=== PATIENT | male | born 1940 | race Caucasian/White ===

== ENCOUNTER 2016-10-29 17:28 | Emergency (ER) | payer OTHER ==
[~2016-10-29] VITALS: Ht 185.4 cm; Wt 56.7 kg
[~2016-10-29 17:28] MED LIST: ATOR40TA52 PO; LISI10TA6 PO; PANT1INJ3 PO; PRE5T PO
[2016-10-29 19:27] LABS: Basophils # (auto) 0 uL; Basophils % (auto) 0.4 % (0.0-2.0); Eosinophils # (auto) 0.3 uL; Eosinophils % (auto) 2.8 % (0.0-7.0); Hematocrit 33.3 % (41.0-53.0); Hemoglobin 10.8 g/dL (13.5-17.5); Lymphocytes # (auto) 0.3 uL; Lymphocytes % (auto) 3.5 % (10.0-50.0); Mean Corpuscular Hemoglobin 27.2 pg (28.0-32.0); Mean Corpuscular Hgb Conc. 32.5 g/dL (32.0-36.0); Mean Corpuscular Volume 83.7 fL (80.0-100.0); Mean Platelet Volume 6.9 fL (7.4-10.4); Monocytes # (auto) 0.7 uL; Neutrophils # (auto) 8.4 uL; Neutrophils % (auto) 86.3 % (37.0-80.0); Platelet Count (auto) 497 10^3/uL (140-450); Red Cell Distribution Width 16.9 % (11.6-16.0); White Blood Cell 9.7 10^3/uL (4.4-10.8)
[2016-10-29] MEDS: ONDANSETRON HCL 4 MG/2 ML VIAL IV ONE (19:29)
[2016-10-29] MEDS: HYDROmorphone HCL 2 MG/ML VL IV ONE (19:29)
[2016-10-29 19:45] LABS: Partial Thromboplastin Time 55.2 sec (22.64-33.71)
[2016-10-29 19:50] LABS: INR 3.08 (0.9-1.15); Prothrombin Time 33.3 sec (9.37-12.3)
[2016-10-29 20:17] LABS: Albumin 2.2 g/dL (3.4-5.0); Alkaline Phosphatase 119 U/L (45-117); Anion Gap 9 (5-15); Aspartate Aminotransferase 14 U/L (15-37); BUN/Creatinine Ratio 32.1; Bilirubin, Total 0.3 mg/dL (0.2-1.0); Blood Urea Nitrogen 18 mg/dL (7-18); Calcium 8.6 mg/dL (8.5-10.1); Carbon Dioxide 25 mmol/L (21-32); Chloride 105 mmol/L (98-107); GFR African American 181 mL/min; GFR Non-African American 150 mL/min; Glucose 132 mg/dL (74-106); Sodium 139 mmol/L (136-145); Total Protein 6.9 g/dL (6.4-8.2)
[2016-10-30] MEDS: CEFTRIAXONE SODIUM 2 GM in D5W 5% 50 ML IV ONE (06:20)
[2016-10-30 08:00] VITALS: BP 98/55
[2016-10-30 12:16] LABS: Urine Color Yellow (Yellow)
[2016-10-30 12:17] LABS: Urine Bilirubin Negative (Negative); Urine Blood Negative /uL (Negative); Urine Glucose Normal (Normal); Urine Ketone Negative (Negative); Urine Nitrite Negative (Negative); Urine Urobilinogen Normal (Negative)
[2016-10-30 12:18] LABS: Urine Amorphous Sediment Few /hpf; Urine RBC 2 /hpf (0 - 3); Urine Squamous Epithelial Cell FEW /hpf (<5); Urine Triple Phosphate Crystal Few /hpf (None Seen)
== END 2016-10-30 08:49 | disposition home or self-care (01) ==
LOC: EDBD 17:28 → EDUNIT# 17:28 → ER 17:28
DX: N39.0 Urinary tract infection, site not specified (principal); I48.91 Unspecified atrial fibrillation; J44.9 Chronic obstructive pulmonary disease, unspecified; I10 Essential (primary) hypertension; Z79.01 Long term (current) use of anticoagulants; Z88.8 Allergy status to other drugs, medicaments and biological substances
CPT/HCPCS: 36415; 80053; 81001; 83735; 84484; 85025; 85610; 85730; 87040; 87086; 87088; 87186; 93005; 94761; 96374; 96375; 99285; J0696; J1170; J2405; J7060

== ENCOUNTER 2016-11-20 11:43 | Inpatient (IN) | payer OTHER ==
[~2016-11-20] VITALS: Ht 177.8 cm; Wt 49.3 kg
[2016-11-20] VITALS (36 sets, daily range): BP systolic 75–118; BP diastolic 35–77
[2016-11-20] MEDS ORDERED: ALBUTEROL SULF 2.5 MG/0.5ML(0.5%) NEB SOLN NEB STA (11:57)
[2016-11-20] MEDS ORDERED: cefTRIAXone 1GM/50ML D5W 50 ML IV ONE (12:00)
[2016-11-20] MEDS ORDERED: IPRATROPIUM BROM 0.5 MG/2.5ML INH SOL NEB ONE (12:00)
[2016-11-20] MEDS ORDERED: methylPREDNISolone SOD SUCC 125 MG/2 ML VL IV ONE (12:00)
[2016-11-20 12:19] LABS: DEFINITIVE VIEW TRANSMISSION; Hematocrit 34.8 % (41.0-53.0); Hemoglobin 11.2 g/dL (13.5-17.5); Mean Corpuscular Hemoglobin 26.6 pg (28.0-32.0); Mean Corpuscular Hgb Conc. 32.2 g/dL (32.0-36.0); Mean Corpuscular Volume 82.5 fL (80.0-100.0); Mean Platelet Volume 6.3 fL (7.4-10.4); Red Cell Distribution Width 18.9 % (11.6-16.0); SUSPECT VIEW TRANSMISSION
[2016-11-20 12:27] LABS: Platelet Count (auto) 849 10^3/uL (140-450); White Blood Cell 31.9 10^3/uL (4.4-10.8)
[2016-11-20 12:28] LABS: Metamyelocytes % 0; Myelocytes % 0; Promyelocytes % 0; Reactive Lymphocytes 0
[2016-11-20] MEDS ORDERED: AZITHROMYCIN 500MG/D5W 250ML 250 ML IV ONE (12:45)
[2016-11-20 12:48] LABS: Lactic Acid w/Reflex 4.4 mmol/L (0.4-2.0); REFLEX LACTIC ACID YES OR NO YES
[2016-11-20 12:50] LABS: Alkaline Phosphatase 132 U/L (45-117); Anion Gap 15 (5-15); Aspartate Aminotransferase 15 U/L (15-37); BUN/Creatinine Ratio 18.5; Bilirubin, Total 0.6 mg/dL (0.2-1.0); Blood Urea Nitrogen 20 mg/dL (7-18); Calcium 8.7 mg/dL (8.5-10.1); Carbon Dioxide 20 mmol/L (21-32); Chloride 101 mmol/L (98-107); GFR African American 85 mL/min; GFR Non-African American 70 mL/min; Glucose 161 mg/dL (74-106); Magnesium 2.1 mg/dL (1.6-2.6); Potassium 4.3 mmol/L (3.5-5.1); Sodium 136 mmol/L (136-145); Total Protein 7.6 g/dL (6.4-8.2)
[2016-11-20 13:01] LABS: B-Type Natriuretic Peptide 209.24 pg/mL (0-100); Temperature: 23.1 C (20.0-25.0)
[2016-11-20] MEDS ORDERED: LORazepam 0.5 MG TAB PO PRN (13:15)
[2016-11-20] MEDS ORDERED: DEXTROSE (50%) 50ML SYRG IV PRN (13:15)
[2016-11-20] MEDS ORDERED: PROCHLORPERAZINE EDISYLATE 5 MG/ML 2ML VIAL IV PRN (13:15)
[2016-11-20] MEDS ORDERED: ALBUTEROL SULF 2.5 MG/0.5ML(0.5%) NEB SOLN NEB PRN (13:15)
[2016-11-20] MEDS ORDERED: LACTULOSE 20Gm/30ML SOLN PO PRN (13:15)
[2016-11-20] MEDS ORDERED: SODIUM CHLORIDE 0.9% 1,000 ML IV ONE (13:15)
[2016-11-20] MEDS ORDERED: VANCOMYCIN PER PHARMACY 0 MG IV SCH (13:15)
[2016-11-20] MEDS ORDERED: TEMAZEPAM 15 MG CAP PO PRN (13:15)
[2016-11-20] MEDS ORDERED: MORPHINE SULF INJ 2 MG/ML SYRINGE 1ML IV PRN ×2 (13:15)
[2016-11-20] MEDS ORDERED: NITROGLYCERIN 0.4 MG SL TAB SL PRN (13:15)
[2016-11-20 13:22] LABS: Allen Test Yes; Base Excess -1.5 mmol/L (-2.0-2.0); Blood AaDO2 131.4 mmHg (<26.0); Blood COHb 0.6 % (0.5-1.5); Blood O2Hb 92.4 % (95.0-100.0); HCO3 20.4 mmol/L (22-26.0); MODE NASAL CANNULA; PCO2 26.1 mmHg (35.0-45.0); PO2 66.2 mmHg (65.0-85.0); Sample Type Arterial
[2016-11-20] MEDS: SODIUM CHLORIDE 0.9% 1,000 ML IV SCH ×2 (13:42→17:13)
[2016-11-20] MEDS ORDERED: PIPERACILLIN-TAZOB 3.375GM 100 ML IV ONE (13:45)
[2016-11-20 14:49] LABS: Hypochromia Slight; Platelet Estimate Markedly Increased
[2016-11-20] MEDS ORDERED: VANCOMYCIN 1GM/250ML D5W 250 ML IV ONE (15:00)
[2016-11-20 15:59] LABS: Prothrombin Time 68.8 sec (9.37-12.3)
[2016-11-20 16:02] LABS: INR 6.37 (0.9-1.15)
[2016-11-20] MEDS ORDERED: SODIUM CHLORIDE 0.9% 500 ML IV ONE (16:30)
[2016-11-20] MEDS ORDERED: PHYTONADIONE ORAL Susp 10 mg/10ml PO ONE (16:30)
[2016-11-20] MEDS: ACCU-CHEK COMFORT CURVE STRIP VI SCH ×2 (17:13→21:54)
[2016-11-20] MEDS: PIPERACILLIN-TAZOB 3.375GM 100 ML IV SCH (17:14)
[2016-11-20] MEDS: ALBUTEROL SULF 2.5 MG/0.5ML(0.5%) NEB SOLN NEB SCH (17:56)
[2016-11-20] MEDS ORDERED: PNEUMOCOCCAL VACC POLYS 25 MCG/0.5 ML VIAL IM ONE (19:15)
[2016-11-20] MEDS ORDERED: POTA10TA79 PO (19:33)
[2016-11-20] MEDS ORDERED: FURO20TA3 PO (19:33)
[2016-11-20] MEDS ORDERED: TIOTCAP INH (19:33)
[2016-11-20] MEDS ORDERED: DIGO0.2570 PO (19:33)
[2016-11-20] MEDS ORDERED: MOME200A INH (19:33)
[2016-11-20] MEDS ORDERED: LACT10SO32 PO (19:33)
[2016-11-20] MEDS ORDERED: ALBU0.084 NEB (19:33)
[2016-11-20] MEDS ORDERED: FINA5TAB4 PO (19:33)
[2016-11-20] MEDS ORDERED: WARF1TAB36 PO (19:33)
[2016-11-20] MEDS: CARVEDILOL 3.125 MG TAB PO SCH (21:54)
[2016-11-21] VITALS (91 sets, daily range): BP systolic 80–147; BP diastolic 38–105
[2016-11-21] MEDS: ALBUTEROL SULF 2.5 MG/0.5ML(0.5%) NEB SOLN NEB SCH ×4 (01:00→18:50)
[2016-11-21] MEDS: ACETAMINOPHEN 500 MG TAB PO PRN ×2 (01:22→22:37)
[2016-11-21] MEDS: SODIUM CHLORIDE 0.9% 1,000 ML IV SCH ×3 (03:00→21:14)
[2016-11-21 03:53] LABS: DEFINITIVE VIEW TRANSMISSION; Hematocrit 26.1 % (41.0-53.0); Hemoglobin 8.4 g/dL (13.5-17.5); Mean Corpuscular Hemoglobin 26.7 pg (28.0-32.0); Mean Corpuscular Volume 83.4 fL (80.0-100.0); Mean Platelet Volume 6.3 fL (7.4-10.4); Platelet Count (auto) 504 10^3/uL (140-450); Red Cell Distribution Width 18.7 % (11.6-16.0); SUSPECT VIEW TRANSMISSION
[2016-11-21 04:03] LABS: Albumin 1.8 g/dL (3.4-5.0); BUN/Creatinine Ratio 26.6; Calcium 7.6 mg/dL (8.5-10.1); Potassium 3.4 mmol/L (3.5-5.1)
[2016-11-21 04:06] LABS: Bilirubin, Total 0.4 mg/dL (0.2-1.0)
[2016-11-21 04:12] LABS: Metamyelocytes % 0; Myelocytes % 0; Promyelocytes % 0; Reactive Lymphocytes 0
[2016-11-21 04:56] LABS: Hypersegmented Neutrophils Present
[2016-11-21 04:57] LABS: Anisocytosis Slight; Burr Cells FEW; Hypochromia Slight; Platelet Estimate Increased
[2016-11-21] MEDS: PIPERACILLIN-TAZOB 3.375GM 100 ML IV SCH ×4 (05:48→18:16)
[2016-11-21] MEDS ORDERED: ALBUMIN 5% 250 ML IV ONE ×3 (06:15→07:15)
[2016-11-21] MEDS ORDERED: POTASSIUM CHLORIDE 20 MEQ, LIDOCAINE 1% (LOCAL ANESTH.) 2 ML in SODIUM CHL 0.9% 100 ML IV ONE (06:15)
[2016-11-21] MEDS: ACCU-CHEK COMFORT CURVE STRIP VI SCH ×2 (06:32→11:31)
[2016-11-21] MEDS ORDERED: AZITHROMYCIN 500MG/D5W 250ML 250 ML IV SCH (10:00)
[2016-11-21] MEDS: CARVEDILOL 3.125 MG TAB PO SCH ×2 (10:00→21:52)
[2016-11-21] MEDS: HYDROcodone-ACET 5/325MG TAB PO PRN ×2 (10:16→17:15)
[2016-11-21] MEDS ORDERED: VANCOMYCIN 750 MG in D5W 5% 250 ML IV SCH (15:00)
[2016-11-21] MEDS ORDERED: POTASSIUM CHL 20 Meq TABLET PO ONE (15:00)
[2016-11-21] MEDS ORDERED: PANTOPRAZOLE 40 MG TAB PO ONE (15:15)
[2016-11-21 16:08] LABS: INR 1.88 (0.9-1.15); Prothrombin Time 20.3 sec (9.37-12.3)
[2016-11-21] MEDS ORDERED: IPRATROPIUM BROM 0.5 MG/2.5ML INH SOL NEB PRN (21:30)
[2016-11-21] MEDS ORDERED: FUROSEMIDE 20 MG/2 ML VIAL IV ONE (21:30)
[2016-11-21] MEDS ORDERED: methylPREDNISolone SOD SUCC 40 MG/ML VL IV SCH (22:00)
[2016-11-22] MEDS ORDERED: PANTOPRAZOLE 40 MG TAB PO SCH (10:00)
== END 2016-11-21 23:30 | disposition short-term general hospital (02) | DRG 871 ==
LOC: EDUNIT# 11:43 → ER 11:48 → TELE 11:49 → ICU WEST 15:27
PROVIDERS: ADMIT Internal Medicine; ATTEND Internal Medicine
PROC: 30233K1 Transfusion of Nonautologous Frozen Plasma into Peripheral Vein, Percutaneous Approach (ICD-10-PCS; principal; 2016-11-20)
PROC: 30233P1 Transfusion of Nonautologous Frozen Red Cells into Peripheral Vein, Percutaneous Approach (ICD-10-PCS; 2016-11-20)
DX: A41.9 Sepsis, unspecified organism (principal); J96.01 Acute respiratory failure with hypoxia; E43 Unspecified severe protein-calorie malnutrition; J18.9 Pneumonia, unspecified organism; I50.42 Chronic combined systolic (congestive) and diastolic (congestive) heart failure; J44.1 Chronic obstructive pulmonary disease with (acute) exacerbation; N39.0 Urinary tract infection, site not specified; Z68.1 Body mass index [BMI] 19.9 or less, adult; J44.0 Chronic obstructive pulmonary disease with (acute) lower respiratory infection; I48.91 Unspecified atrial fibrillation; Z66 Do not resuscitate; E87.6 Hypokalemia; F41.9 Anxiety disorder, unspecified; I11.0 Hypertensive heart disease with heart failure; I25.9 Chronic ischemic heart disease, unspecified; N40.0 Benign prostatic hyperplasia without lower urinary tract symptoms; Z86.73 Personal history of transient ischemic attack (TIA), and cerebral infarction without residual deficits; D50.9 Iron deficiency anemia, unspecified; D53.9 Nutritional anemia, unspecified; Z23 Encounter for immunization; T45.515A Adverse effect of anticoagulants, initial encounter
CPT/HCPCS: 36415; 36600; 71010; 76604; 80053; 80162; 82805; 82962; 83036; 83605; 83735; 83880; 84443; 84484; 85007; 85027; 85610; 86850; 86900; 86901; 87040; 87070; 87081; 87205; 93005; 94640; 96365; 96366; 96367; 96368; 96375; 99291; J0696; J2001; J2543; J7060

== ENCOUNTER 2016-12-17 09:00 | Observation (INO) | payer OTHER ==
[~2016-12-17] VITALS: Ht 182.9 cm; Wt 59.0 kg
[~2016-12-17 09:00] MED LIST changes: +ALBU0.084 NEB; +DIGO0.2570 PO; +FINA5TAB4 PO; +FURO20TA3 PO; +LACT10SO32 PO; +MOME200A INH; +POTA10TA79 PO; +TIOTCAP INH; +WARF1TAB36 PO
[2016-12-17 09:53] LABS: Basophils # (auto) 0 uL; DEFINITIVE VIEW TRANSMISSION; Eosinophils # (auto) 0.1 uL; Eosinophils % (auto) 1.2 % (0.0-7.0); Hematocrit 29.6 % (41.0-53.0); Hemoglobin 9.5 g/dL (13.5-17.5); Lymphocytes # (auto) 0.3 uL; Lymphocytes % (auto) 3.8 % (10.0-50.0); Mean Corpuscular Hemoglobin 25.9 pg (28.0-32.0); Mean Corpuscular Hgb Conc. 32.1 g/dL (32.0-36.0); Mean Corpuscular Volume 80.7 fL (80.0-100.0); Mean Platelet Volume 6.5 fL (7.4-10.4); Monocytes # (auto) 0.6 uL; Monocytes % (auto) 6.8 % (0.0-12.0); Neutrophils # (auto) 7.7 uL; Neutrophils % (auto) 88.2 % (37.0-80.0); Platelet Count (auto) 653 10^3/uL (140-450); White Blood Cell 8.7 10^3/uL (4.4-10.8)
[2016-12-17 09:55] LABS: Red Cell Distribution Width 20.9 % (11.6-16.0)
[2016-12-17] MEDS ORDERED: SODIUM CHLORIDE 0.9% 1,000 ML IV ONE (10:08)
[2016-12-17] MEDS ORDERED: MORPHINE SULFATE 4 MG/ML SYRG IV ONE (10:15)
[2016-12-17] MEDS ORDERED: ONDANSETRON HCL 4 MG/2 ML VIAL IV ONE (10:15)
[2016-12-17 10:16] LABS: Albumin 2.2 g/dL (3.4-5.0); BUN/Creatinine Ratio 30.9; Bilirubin, Total 0.5 mg/dL (0.2-1.0); Calcium 8.8 mg/dL (8.5-10.1); Magnesium 2.4 mg/dL (1.6-2.6); Potassium 3.9 mmol/L (3.5-5.1); Total Protein 7.6 g/dL (6.4-8.2)
[2016-12-17 10:23] LABS: Anisocytosis Slight; Hypochromia Slight; Platelet Estimate Increased
[2016-12-17 10:42] LABS: INR 2.98 (0.9-1.15); Prothrombin Time 32.8 sec (9.37-12.3)
[2016-12-17 10:57] LABS: B-Type Natriuretic Peptide 150.07 pg/mL (0-100); Temperature: 24.6 C (20.0-25.0)
[2016-12-17 12:54] LABS: Urine Bilirubin Negative (Negative); Urine Color Yellow (Yellow); Urine Glucose Normal (Normal); Urine Ketone Negative (Negative); Urine Mucus FEW (None Seen); Urine Nitrite Negative (Negative); Urine RBC 51 /hpf (0 - 3); Urine Squamous Epithelial Cell FEW /hpf (<5)
[2016-12-17 12:57] LABS: Urine Blood 1+ /uL (Negative)
[2016-12-17] MEDS ORDERED: MINERAL OIL 30 ML PO ONE (15:00)
[2016-12-17] MEDS ORDERED: CIPROFLOXACIN HCL 500 MG TAB PO ONE (15:00)
[2016-12-17 18:47] VITALS: BP 128/89
== END 2016-12-17 21:05 | disposition short-term general hospital (02) | DRG 641 ==
LOC: EDBD 09:00 → ER 09:04 → OVERFLOW 12:48 → ER 21:05
PROVIDERS: ADMIT Emergency Medicine; ATTEND Emergency Medicine
DX: E43 Unspecified severe protein-calorie malnutrition (principal); R10.9 Unspecified abdominal pain; I11.0 Hypertensive heart disease with heart failure; I48.91 Unspecified atrial fibrillation; I50.9 Heart failure, unspecified; J44.9 Chronic obstructive pulmonary disease, unspecified; K21.9 Gastro-esophageal reflux disease without esophagitis; Z86.73 Personal history of transient ischemic attack (TIA), and cerebral infarction without residual deficits
CPT/HCPCS: 36415; 71010; 74176; 80053; 81001; 83605; 83735; 83880; 84484; 85025; 85610; 85730; 87040; 93005; 96361; 96374; 96375; 99285; G0378; J2270; J2405

== ENCOUNTER 2018-01-15 07:31 | Emergency (ER) | payer OTHER ==
[~2018-01-15] VITALS: Ht 185.4 cm; Wt 74.8 kg
[~2018-01-15 07:31] MED LIST changes: -MOME200A INH; -PANT1INJ3 PO; -PRE5T PO
[2018-01-15 07:59] LABS: Basophils # (auto) 0 uL; Hemoglobin 10.3 g/dL (13.5-17.5); Lymphocytes # (auto) 0.5 uL
[2018-01-15 08:02] LABS: Basophils % (auto) 0.3 % (0.0-2.0); Eosinophils # (auto) 0.2 uL; Eosinophils % (auto) 1.4 % (0.0-7.0); Hematocrit 33.1 % (41.0-53.0); Lymphocytes % (auto) 4.4 % (10.0-50.0); Mean Corpuscular Hemoglobin 26.5 pg (28.0-32.0); Mean Corpuscular Hgb Conc. 31.2 g/dL (32.0-36.0); Monocytes # (auto) 0.9 uL; Monocytes % (auto) 7.8 % (0.0-12.0); Neutrophils # (auto) 9.9 uL; Neutrophils % (auto) 86.1 % (37.0-80.0); Platelet Count (auto) 353 10^3/uL (140-450); Red Cell Distribution Width 18.8 % (11.8-14.3); White Blood Cell 11.5 10^3/uL (4.4-10.8)
[2018-01-15 08:21] LABS: Albumin 2.6 g/dL (3.4-5.0); BUN/Creatinine Ratio 50.8; Bilirubin, Total 0.4 mg/dL (0.2-1.0); Calcium 8.3 mg/dL (8.5-10.1); Total Protein 6.8 g/dL (6.4-8.2)
[2018-01-15] MEDS ORDERED: SODIUM CHLORIDE 0.9% 1,000 ML IV ONE (09:30)
[2018-01-15] MEDS ORDERED: FLEET ENEMA(ADULT) 135 ML PR ONE (10:30)
[2018-01-15] MEDS ORDERED: PANTOPRAZOLE 40 MG/10 ML VIAL IV ONE (15:30)
[2018-01-15 21:26] VITALS: BP 94/57
== END 2018-01-15 22:29 | disposition short-term general hospital (02) ==
LOC: EDBD 07:31 → ER 07:35
DX: K92.2 Gastrointestinal hemorrhage, unspecified (principal); E44.0 Moderate protein-calorie malnutrition; I48.91 Unspecified atrial fibrillation; K21.9 Gastro-esophageal reflux disease without esophagitis; J44.9 Chronic obstructive pulmonary disease, unspecified; Z68.21 Body mass index [BMI] 21.0-21.9, adult; Z86.73 Personal history of transient ischemic attack (TIA), and cerebral infarction without residual deficits; Z88.1 Allergy status to other antibiotic agents; Z88.6 Allergy status to analgesic agent
CPT/HCPCS: 36415; 74176; 80053; 85025; 93005; 96374; 99285; C9113; J7030

== ENCOUNTER 2018-01-25 08:08 | Emergency (ER) | payer OTHER ==
[~2018-01-25] VITALS: Ht 182.9 cm; Wt 58.5 kg
[2018-01-25] MEDS ORDERED: SODIUM CHLORIDE 0.9% 1,000 ML IV ONE (08:27)
[2018-01-25] MEDS ORDERED: LIDOCAINE 2% JELLY 11ml (GLYDO) ONE (08:31)
[2018-01-25] MEDS ORDERED: LIDOCAINE 2% JELLY 11ml (GLYDO) UR ONE ×2 (08:45→11:30)
[2018-01-25 09:13] LABS: Basophils # (auto) 0 uL; Basophils % (auto) 0.2 % (0.0-2.0); Eosinophils # (auto) 0.3 uL; Eosinophils % (auto) 2.6 % (0.0-7.0); Hematocrit 28.7 % (41.0-53.0); Hemoglobin 9.2 g/dL (13.5-17.5); Lymphocytes # (auto) 0.4 uL; Mean Corpuscular Hemoglobin 27.3 pg (28.0-32.0); Mean Corpuscular Hgb Conc. 32.2 g/dL (32.0-36.0); Mean Corpuscular Volume 84.6 fL (80.0-100.0); Monocytes # (auto) 0.8 uL; Monocytes % (auto) 8.5 % (0.0-12.0); Neutrophils # (auto) 8.1 uL; Neutrophils % (auto) 84.7 % (37.0-80.0); Nucleated Red Blood Cells % 0.1 %; Platelet Count (auto) 387 10^3/uL (140-450); Red Blood Cells 3.39 10^6/uL (4.5-5.90); Red Cell Distribution Width 19.5 % (11.8-14.3); White Blood Cell 9.6 10^3/uL (4.4-10.8)
[2018-01-25 09:28] LABS: Albumin 2.5 g/dL (3.4-5.0); BUN/Creatinine Ratio 11.3; Calcium 8.3 mg/dL (8.5-10.1); INR 1.07 (0.9-1.15); Partial Thromboplastin Time 27.3 sec (23.78-33.04); Potassium 3.7 mmol/L (3.5-5.1); Prothrombin Time 11.4 sec (9.27-12.13)
[2018-01-25 09:31] LABS: Bilirubin, Total 0.4 mg/dL (0.2-1.0); Total Protein 6.3 g/dL (6.4-8.2)
[2018-01-25] MEDS ORDERED: METOCLOPRAMIDE HCL 5MG/ml INJ 2ml VIAL IV ONE (10:45)
[2018-01-25] MEDS ORDERED: KETOROLAC TROMETH 30 MG/ML 1ML VIAL IV ONE (10:45)
[2018-01-25] MEDS ORDERED: TAMSULOSIN HYDROCHLORIDE 0.4 MG CAP PO ONE (10:45)
[2018-01-25] MEDS ORDERED: HYDROcodone-ACET 10/325MG TAB PO ONE (11:30)
[2018-01-25] MEDS ORDERED: LORazepam 2MG/ML-1ML VIAL IV ONE (16:15)
[2018-01-25 19:50] VITALS: BP 108/68
== END 2018-01-25 20:15 | disposition home or self-care (01) ==
LOC: EDBD 08:08 → ER 08:08
DX: N39.0 Urinary tract infection, site not specified (principal); I48.91 Unspecified atrial fibrillation; K21.9 Gastro-esophageal reflux disease without esophagitis; E78.5 Hyperlipidemia, unspecified; Z74.01 Bed confinement status; Z86.73 Personal history of transient ischemic attack (TIA), and cerebral infarction without residual deficits
CPT/HCPCS: 36415; 51702; 74176; 80053; 80162; 83690; 83735; 85025; 85610; 85730; 93005; 96374; 96375; 99285; J1885; J2060; J2765

== ENCOUNTER 2018-09-13 14:39 | Inpatient (IN) | payer OTHER ==
[~2018-09-13] VITALS: Ht 182.9 cm; Wt 62.0 kg
[~2018-09-13 14:39] MED LIST changes: +AZIT500T4 PO
[2018-09-13 16:50] LABS: Hemoglobin 8.6 g/dL (13.5-17.5)
[2018-09-13 16:52] LABS: Mean Corpuscular Hemoglobin 24.6 pg (28.0-32.0); Mean Corpuscular Hgb Conc. 31.7 g/dL (32.0-36.0); Mean Corpuscular Volume 77.6 fL (80.0-100.0); Platelet Count (auto) 555 10^3/uL (140-450); Red Blood Cells 3.49 10^6/uL (4.5-5.90); Red Cell Distribution Width 19.8 % (11.8-14.3); White Blood Cell 13.5 10^3/uL (4.4-10.8)
[2018-09-13 16:59] LABS: Basophils % (manual) 0 (0.0-2.0); Blast Cells 0; Metamyelocytes % 0; Myelocytes % 0; Promyelocytes % 0; Reactive Lymphocytes 0
[2018-09-13 17:02] LABS: Albumin 1.7 g/dL (3.4-5.0); Potassium 4.2 mmol/L (3.5-5.1)
[2018-09-13 17:07] LABS: BUN/Creatinine Ratio 43.4; Bilirubin, Total 0.3 mg/dL (0.2-1.0); Total Protein 6.5 g/dL (6.4-8.2)
[2018-09-13 17:33] LABS: Band Neutrophils % (manual) 1; Eosinophils % (manual) 2 (0-7); Lymphocytes % (manual) 1 (10.0-50.0); Monocytes % (manual) 2 (0-12)
[2018-09-13] MEDS ORDERED: SODIUM CHLORIDE 0.9% 1,000 ML IV ONE (17:44)
[2018-09-13] MEDS ORDERED: cefTRIAXone 1GM/50ML D5W 50 ML IV ONE (17:45)
[2018-09-13 18:29] LABS: Prothrombin Time 42.4 sec (9.27-12.13)
[2018-09-13 18:32] LABS: Magnesium 2.2 mg/dL (1.6-2.6)
[2018-09-13 18:51] LABS: INR 4.3 (0.9-1.15)
[2018-09-13] MEDS ORDERED: AZITHROMYCIN 500MG/ 250ML 250 ML IV ONE (22:30)
[2018-09-13] MEDS ORDERED: FUROSEMIDE 40 MG/4 ML VIAL IV ONE (22:30)
[2018-09-13] MEDS ORDERED: LACTULOSE 20Gm/30ML SOLN PO PRN (22:45)
[2018-09-13 23:36] VITALS: BP 116/87
[2018-09-14] MEDS: ALBUTEROL SULF 2.5 MG/0.5ML(0.5%) NEB SOLN NEB SCH ×6 (02:00→22:50)
[2018-09-14] MEDS: IPRATROPIUM BROM 0.5 MG/2.5ML INH SOL NEB SCH ×6 (02:00→22:50)
[2018-09-14] MEDS ORDERED: DIGOXIN (250MCG/ML) 2 ML AMPULE ONE (03:19)
[2018-09-14] MEDS ORDERED: DIGOXIN (250MCG/ML) 2 ML AMPULE IV ONE (03:30)
[2018-09-14] MEDS ORDERED: DILTIAZEM HCL 25 MG/5 ML VIAL IV ONE ×2 (04:09→04:15)
[2018-09-14 04:24] VITALS: BP 92/58
[2018-09-14] MEDS ORDERED: AMIODARONE HCL 150 MG in D5W 5% 100 ML IV ONE (07:00)
[2018-09-14] MEDS ORDERED: AMIODARONE HCL 900 MG in DEXTROSE 500 ML IV SCH (07:09)
[2018-09-14 08:16] LABS: Eosinophils # (auto) 0.1 uL; Eosinophils % (auto) 0.5 % (0.0-7.0); Hemoglobin 7.9 g/dL (13.5-17.5); Nucleated Red Blood Cells % 0.3 %; White Blood Cell 12.3 10^3/uL (4.4-10.8)
[2018-09-14 08:18] LABS: Basophils # (auto) 0.1 uL; Basophils % (auto) 0.5 % (0.0-2.0); Hematocrit 25.2 % (41.0-53.0); Lymphocytes # (auto) 0.2 uL; Lymphocytes % (auto) 1.9 % (10.0-50.0); Mean Corpuscular Hemoglobin 24.6 pg (28.0-32.0); Mean Corpuscular Hgb Conc. 31.5 g/dL (32.0-36.0); Mean Corpuscular Volume 78.2 fL (80.0-100.0); Monocytes # (auto) 0.5 uL; Monocytes % (auto) 4.1 % (0.0-12.0); Neutrophils # (auto) 11.5 uL; Platelet Count (auto) 550 10^3/uL (140-450); Red Blood Cells 3.22 10^6/uL (4.5-5.90)
[2018-09-14 08:20] LABS: Red Cell Distribution Width 20.4 % (11.8-14.3)
[2018-09-14 08:33] LABS: BUN/Creatinine Ratio 37.5; Calcium 7.4 mg/dL (8.5-10.1); Potassium 3.9 mmol/L (3.5-5.1)
[2018-09-14] MEDS: FUROSEMIDE 40 MG/4 ML VIAL IV SCH (10:00)
[2018-09-14] MEDS: LEVOFLOXACIN 500MG 100 ML IV SCH (10:10)
[2018-09-14] MEDS: POTASSIUM CHLORIDE 8 MEQ TAB PO SCH (10:10)
[2018-09-14] MEDS: DIGOXIN 0.125 MG TAB PO SCH (10:10)
[2018-09-14] MEDS: FINASTERIDE 5 MG TAB PO SCH (10:10)
--- NOTE | 2018-09-14 10:16 | NUR ---
ALBUTEROL HELD AT THIS TIME DUE TO TACHYCARDIA. HR 133. ATROVENT ADMINISTERED WITH NO ADVERSE REACTIONS NOTED. FAIZA JACKMAN AWARE. MEDICATION RETURNED TO [facility]
[2018-09-14] MEDS: AMIODARONE HCL 900 MG in DEXTROSE 500 ML IV SCH (13:16)
--- NOTE | 2018-09-14 13:22 | NUR ---
ORDER AND CLINICALS FAXED TO [facility] REQUESTING TRANSFER
--- NOTE | 2018-09-14 15:46 | NUR ---
FOLLOW UP PHONE CALL MADE TO [facility] TO CONFIRM ORDER TO TRANSFER WAS RECEIVED. THEY ARE WORKING ON THE TRANSFER.
[2018-09-14 16:21] LABS: Prothrombin Time 43.9 sec (9.27-12.13)
[2018-09-14 16:57] LABS: INR 4.47 (0.9-1.15)
--- NOTE | 2018-09-14 18:00 | NUR ---
WOUND CARE NOTE: Wound care in to see patient per wound care request regarding Low Reece score of 12, putting patient to high risk for skin breakdown. Patient is 78 years old male with admitting diagnosis of COPD Exacerbation. Patient is resting in R bed #8. He's awake, alert and oriented. No wound noted to visible skin, arms and BLE . Unable to fully assess skin to back and sacral area as patient refused and stated he has no pressure injury, no wounds. Patient states that "it hurts when turn and move" and added that "you may cause more harm than good" Patient educted on risk for pressure injury he states he's aware but still refused. FAIZA Cali made aware of patient's refusal for skin assessment. RECOMMENDATION: BID/PRN cleaning and application of Barrier cream to sacral/buttocks as preventative with application of preventative Opti foam sacral dressing per MD order,Dietary consult for low Reece score, frequent turning and repositioning schedule as condition permits, redistribute pressure points with pillows,elevate heels on pillows, continue monitoring by wound care while patient is hospitalized.
[2018-09-14] MEDS: ACETAMINOPHEN 500 MG TAB PO PRN (19:56)
[2018-09-14] MEDS ORDERED: AZITHROMYCIN 500MG/ 250ML 250 ML IV SCH (22:00)
[2018-09-14] MEDS ORDERED: cefTRIAXone 1GM/50ML D5W 50 ML IV SCH (22:00)
[2018-09-15] MEDS: HYDROcodone-ACET 5/325MG TAB PO PRN ×3 (00:59→23:02)
[2018-09-15] MEDS: IPRATROPIUM BROM 0.5 MG/2.5ML INH SOL NEB SCH ×6 (02:14→22:39)
[2018-09-15] MEDS: ALBUTEROL SULF 2.5 MG/0.5ML(0.5%) NEB SOLN NEB SCH ×5 (02:14→18:46)
[2018-09-15 04:41] LABS: Urine Bacteria MANY /hpf (None Seen); Urine Blood 1+ /uL (Negative); Urine Budding Yeast MANY /hpf (None Seen); Urine Mucus FEW (None Seen); Urine Specific Gravity 1.023 (1.001-1.035); Urine WBC 346 /hpf (0 - 3); Urine WBC Clumps PRESENT /hpf (None Seen)
[2018-09-15 07:29] LABS: Basophils # (auto) 0 uL; Basophils % (auto) 0.1 % (0.0-2.0); Eosinophils # (auto) 0.1 uL; Eosinophils % (auto) 1.4 % (0.0-7.0); Lymphocytes # (auto) 0.2 uL; Monocytes # (auto) 0.6 uL
[2018-09-15 07:32] LABS: Hematocrit 26.4 % (41.0-53.0); Hemoglobin 8.3 g/dL (13.5-17.5); Lymphocytes % (auto) 1.7 % (10.0-50.0); Mean Corpuscular Hemoglobin 25.1 pg (28.0-32.0); Mean Corpuscular Hgb Conc. 31.6 g/dL (32.0-36.0); Mean Corpuscular Volume 79.5 fL (80.0-100.0); Monocytes % (auto) 5.7 % (0.0-12.0); Neutrophils # (auto) 9.5 uL; Neutrophils % (auto) 91.1 % (37.0-80.0); Nucleated Red Blood Cells % 0.3 %; Platelet Count (auto) 489 10^3/uL (140-450); Red Blood Cells 3.32 10^6/uL (4.5-5.90); White Blood Cell 10.5 10^3/uL (4.4-10.8)
[2018-09-15 07:34] LABS: Red Cell Distribution Width 20.3 % (11.8-14.3)
[2018-09-15 07:35] LABS: INR 3.53 (0.9-1.15); Partial Thromboplastin Time 54.5 sec (23.78-33.04); Prothrombin Time 35.2 sec (9.27-12.13)
[2018-09-15 07:38] LABS: Albumin 1.6 g/dL (3.4-5.0); Calcium 7.9 mg/dL (8.5-10.1); Potassium 3.9 mmol/L (3.5-5.1)
[2018-09-15 07:40] LABS: BUN/Creatinine Ratio 31.7
[2018-09-15 07:43] LABS: Bilirubin, Total 0.4 mg/dL (0.2-1.0); Total Protein 6.3 g/dL (6.4-8.2)
[2018-09-15] MEDS: FUROSEMIDE 40 MG/4 ML VIAL IV SCH (10:00)
[2018-09-15] MEDS: POTASSIUM CHLORIDE 8 MEQ TAB PO SCH (10:00)
[2018-09-15] MEDS: DIGOXIN 0.125 MG TAB PO SCH (10:00)
[2018-09-15] MEDS: FINASTERIDE 5 MG TAB PO SCH (10:00)
[2018-09-15] MEDS: LEVOFLOXACIN 500MG 100 ML IV SCH (10:00)
[2018-09-15] MEDS: ACETAMINOPHEN 500 MG TAB PO PRN (11:15)
[2018-09-15] MEDS: AMIODARONE HCL 900 MG in DEXTROSE 500 ML IV SCH (13:11)
[2018-09-15] MEDS: methylPREDNISolone SOD SUCC 40 MG/ML VL IV SCH (18:16)
[2018-09-16] MEDS: IPRATROPIUM BROM 0.5 MG/2.5ML INH SOL NEB SCH ×6 (02:39→22:24)
[2018-09-16] MEDS: methylPREDNISolone SOD SUCC 40 MG/ML VL IV SCH ×4 (05:57→18:40)
[2018-09-16] MEDS: ALBUTEROL SULF 2.5 MG/0.5ML(0.5%) NEB SOLN NEB SCH ×5 (06:00→22:24)
[2018-09-16 07:52] LABS: White Blood Cell 9.8 10^3/uL (4.4-10.8)
[2018-09-16 07:55] LABS: Hematocrit 24.7 % (41.0-53.0); Mean Corpuscular Hemoglobin 24.9 pg (28.0-32.0); Mean Corpuscular Hgb Conc. 32.2 g/dL (32.0-36.0); Mean Corpuscular Volume 77.3 fL (80.0-100.0); Platelet Count (auto) 464 10^3/uL (140-450)
[2018-09-16 08:10] LABS: Red Cell Distribution Width 20.3 % (11.8-14.3)
[2018-09-16 08:12] LABS: Band Neutrophils % (manual) 0; Basophils % (manual) 0 (0.0-2.0); Blast Cells 0; Eosinophils % (manual) 0 (0-7); Metamyelocytes % 0; Myelocytes % 0; Potassium 4.7 mmol/L (3.5-5.1); Promyelocytes % 0; Reactive Lymphocytes 0
[2018-09-16 08:15] LABS: BUN/Creatinine Ratio 33.9
[2018-09-16 08:20] LABS: INR 2.35 (0.9-1.15)
[2018-09-16] MEDS: FUROSEMIDE 40 MG/4 ML VIAL IV SCH (09:43)
[2018-09-16] MEDS: HYDROcodone-ACET 5/325MG TAB PO PRN (09:43)
[2018-09-16] MEDS: POTASSIUM CHLORIDE 8 MEQ TAB PO SCH (09:44)
[2018-09-16] MEDS: DIGOXIN 0.125 MG TAB PO SCH (09:44)
[2018-09-16] MEDS: FINASTERIDE 5 MG TAB PO SCH (09:44)
[2018-09-16] MEDS ORDERED: PNEUMOCOCCAL VACC POLYS 25 MCG/0.5 ML VIAL IM ONE (10:00)
[2018-09-16] MEDS: AMIODARONE HCL 900 MG in DEXTROSE 500 ML IV SCH (13:09)
[2018-09-16 14:09] LABS: Lymphocytes % (manual) 1 (10.0-50.0); Monocytes % (manual) 1 (0-12)
[2018-09-16] MEDS ORDERED: WARFARIN SODIUM 2 MG TAB PO ONE (17:00)
[2018-09-16 21:02] VITALS: BP 105/55
[2018-09-17] MEDS: methylPREDNISolone SOD SUCC 40 MG/ML VL IV SCH ×4 (00:53→17:56)
[2018-09-17] MEDS: ALBUTEROL SULF 2.5 MG/0.5ML(0.5%) NEB SOLN NEB SCH ×4 (02:05→22:26)
[2018-09-17] MEDS: IPRATROPIUM BROM 0.5 MG/2.5ML INH SOL NEB SCH ×6 (02:05→22:25)
[2018-09-17 06:53] LABS: Basophils # (auto) 0 uL; Eosinophils # (auto) 0 uL; Lymphocytes # (auto) 0.1 uL; Mean Corpuscular Hemoglobin 24.8 pg (28.0-32.0); Mean Corpuscular Hgb Conc. 31.7 g/dL (32.0-36.0); Monocytes # (auto) 0.3 uL; Nucleated Red Blood Cells % 0.3 %
[2018-09-17 06:59] LABS: Basophils % (auto) 0.2 % (0.0-2.0); Hematocrit 24.5 % (41.0-53.0); Hemoglobin 7.8 g/dL (13.5-17.5); Mean Corpuscular Volume 78.1 fL (80.0-100.0); Monocytes % (auto) 2.6 % (0.0-12.0); Neutrophils # (auto) 11.2 uL; Neutrophils % (auto) 96.2 % (37.0-80.0); Platelet Count (auto) 500 10^3/uL (140-450); Red Blood Cells 3.13 10^6/uL (4.5-5.90); White Blood Cell 11.6 10^3/uL (4.4-10.8)
[2018-09-17 07:08] LABS: Red Cell Distribution Width 20.3 % (11.8-14.3)
[2018-09-17 07:11] LABS: BUN/Creatinine Ratio 42.9; Calcium 8.2 mg/dL (8.5-10.1); Potassium 4.4 mmol/L (3.5-5.1)
[2018-09-17 07:42] LABS: INR 2.3 (0.9-1.15); Prothrombin Time 23.5 sec (9.27-12.13)
[2018-09-17] MEDS: POTASSIUM CHLORIDE 8 MEQ TAB PO SCH (10:25)
[2018-09-17] MEDS: FINASTERIDE 5 MG TAB PO SCH (10:26)
[2018-09-17] MEDS: AMIODARONE HCL 200 MG TAB PO SCH (10:26)
[2018-09-17] MEDS: DIGOXIN 0.125 MG TAB PO SCH (10:26)
[2018-09-17] MEDS: FUROSEMIDE 40 MG/4 ML VIAL IV SCH (11:00)
--- NOTE | 2018-09-17 12:45 | NUR ---
Telemetry admit from ER [facility] admitted to Telemetry unit after SBAR received. Patient oriented to Mary Arndt, primary RN, unit, room, bed, and unit policies regarding patient care and visiting hours. Patient now on continuous telemetry monitoring, tele box # 6 and telemetry reading on arrival to unit is . Patient placed on bedside oxygen, weighed by bedscale and encouraged to call if they need something. All questions and concerns addressed, patient verbalized understanding. Note:
--- NOTE | 2018-09-17 15:32 | NUR ---
NUTRITION CONSULT/ASSESSMENT NOTES Please refer to link notes of nutrition screen form filed under the intervention section of the plan of care for further details. Est. Needs based on IBW (81 kg): 2050 kcal to 2350 kcal (25-30 kcal/kgIBW), 81 gms to 105 gms pro (1.0-1.3 gms/kgIBW d/t severe hypoalbuminemia). Will continue to monitor pertinent labs and reassess nutrient need prn Thank you for this consult. Addendum: 09/17/18 at [address] Amended: Links added.
--- NOTE | 2018-09-17 15:34 | NUR ---
PATIENT SNF LOCATION PATIENT IS FROM [facility] [id number] [place] [address]
[2018-09-17] MEDS ORDERED: WARFARIN SODIUM 2.5 MG TAB PO ONE (17:00)
[2018-09-17 17:09] VITALS: BP 104/56
[2018-09-17] MEDS: ACETAMINOPHEN 500 MG TAB PO PRN (18:07)
--- NOTE | 2018-09-17 19:13 | NUR ---
Respiratory note: AT BEDSIDE FOR MED RADHA AN.
[2018-09-17 22:00] VITALS: BP 101/63
--- NOTE | 2018-09-17 22:26 | NUR ---
Respiratory note: AT BEDSIDE FOR MED RADHA AN.
[2018-09-18] MEDS: methylPREDNISolone SOD SUCC 40 MG/ML VL IV SCH ×3 (00:02→22:00)
[2018-09-18] MEDS: IPRATROPIUM BROM 0.5 MG/2.5ML INH SOL NEB SCH ×6 (02:35→22:14)
--- NOTE | 2018-09-18 02:35 | NUR ---
Respiratory note: PT REFUSING MED NEB TX AT THIS TIME STATES HE WOULD LIKE TO SLEEP. POX 97% HR 67. RR18.
[2018-09-18 05:00] VITALS: BP 109/57
[2018-09-18 05:52] LABS: Basophils # (auto) 0 uL; Basophils % (auto) 0.1 % (0.0-2.0); Eosinophils # (auto) 0 uL; Hemoglobin 8.1 g/dL (13.5-17.5); Lymphocytes # (auto) 0.1 uL; Mean Corpuscular Volume 77.6 fL (80.0-100.0); Monocytes # (auto) 0.5 uL; Monocytes % (auto) 2.4 % (0.0-12.0)
[2018-09-18 05:54] LABS: Lymphocytes % (auto) 0.5 % (10.0-50.0); Mean Corpuscular Hemoglobin 24.2 pg (28.0-32.0); Mean Corpuscular Hgb Conc. 31.2 g/dL (32.0-36.0); Neutrophils # (auto) 18.4 uL; Platelet Count (auto) 516 10^3/uL (140-450); Red Blood Cells 3.35 10^6/uL (4.5-5.90)
[2018-09-18 06:03] LABS: Red Cell Distribution Width 20.4 % (11.8-14.3)
[2018-09-18 06:04] LABS: INR 2.16 (0.9-1.15); Prothrombin Time 22.1 sec (9.27-12.13)
[2018-09-18] MEDS: ALBUTEROL SULF 2.5 MG/0.5ML(0.5%) NEB SOLN NEB SCH ×4 (06:35→20:02)
[2018-09-18 08:00] VITALS: BP 98/57
[2018-09-18 08:40] VITALS: BP 108/62
[2018-09-18] MEDS: FUROSEMIDE 40 MG/4 ML VIAL IV SCH (09:48)
[2018-09-18] MEDS: DIGOXIN 0.125 MG TAB PO SCH (09:49)
[2018-09-18] MEDS: AMIODARONE HCL 200 MG TAB PO SCH (09:49)
[2018-09-18] MEDS: POTASSIUM CHLORIDE 8 MEQ TAB PO SCH (09:49)
[2018-09-18] MEDS: FINASTERIDE 5 MG TAB PO SCH (09:50)
--- NOTE | 2018-09-18 10:15 | NUR ---
SBAR received from FAIZA Tian Patient resting in bed with even and unlabored respirations. Patient instructed on POC, fall precautions and to call for assistance. Patient verbalized understanding. Fall precautions in place with call light within reach. Patient requesting PB&J sandwich. Will notify dietary of patient's request.
--- NOTE | 2018-09-18 12:30 | NUR ---
was at bedside - Dr. Arnold Patient needs to follow up with urologist, Dr. Lu, next Friday or Friday. Staff is unable to schedule appointment due to patient being a [facility] patient. Patient verbalized understanding. Patient is a possible discharge tomorrow with rogers catheter.
[2018-09-18 13:00] VITALS: BP 102/61
--- NOTE | 2018-09-18 14:07 | NUR ---
Care endorsed to FAIZA Fry. Patient is resting in bed with even and unlabored respirations. Fall precautions in place with call light within reach.
[2018-09-18] MEDS: HYDROcodone-ACET 5/325MG TAB PO PRN (15:28)
--- NOTE | 2018-09-18 15:30 | NUR ---
Opening Shift Note: A&Ox4, resting in bed. Currently on 2LO2 via NC; wears 2.5-3 L O2 at home per patient; pain 0/10; bedbound at baseline. Bed locked in lowest position, side rails up x2, call light within reach, and bed alarm on for patient safety. IV 22 g in left hand removed related to pain and infiltration. Patient refusing a new IV at this time. Patient stated "I will get one after dinner". Skin: bilateral arm bruising; patient refused to turn to assess skin on backside. Jose Alejandro present on admission per patient 09/13/18. Contact isolation for history of VRE/MRSA. POC discussed and questions answered. Will continue to round prn.
[2018-09-18 17:00] VITALS: BP 94/56
[2018-09-18] MEDS ORDERED: WARFARIN SODIUM 2.5 MG TAB PO ONE (17:00)
--- NOTE | 2018-09-18 17:16 | NUR ---
assessment Per consult discharge patient back to his facility on current meds. Per patients brother Eddy [phone] prior to admission patient resided at [facility] [phone]. Per Eddy patient will return to [facility] on discharge. Patient has a hospital bed at [facility]. Patient has an advanced directive and Eddy is his POA. Waiting on discharge now. Addendum: 09/18/18 at 1719 by Ora COLEMAN Amended: Links added.
--- NOTE | 2018-09-18 19:10 | NUR ---
Opening Shift Note Assumed care of patient asleep with breathing even an unlabored. No S/S of distress/SOB or pain. Will continue to monitor for changes Q1hr and PRN. Side rails up x2. Bed locked in lowest position. Call light within reach.
--- NOTE | 2018-09-18 20:00 | NUR ---
Patient refused to have IV placed at this time.
[2018-09-18 22:00] VITALS: BP 87/56
--- NOTE | 2018-09-19 00:30 | NUR ---
Patient continuos to refuse IV placement. Addendum: 09/19/18 at 0043 by SALVATORE TRAYLOR RN RN Regardless of patient education on hospital protocol. Explained to the patient the importance of having an IV placed while in the hospital. Patient continuous to refuse.
[2018-09-19] MEDS: IPRATROPIUM BROM 0.5 MG/2.5ML INH SOL NEB SCH ×6 (02:03→22:03)
--- NOTE | 2018-09-19 02:14 | NUR ---
Rounds Patient in bed asleep with no signs of distress/sob/pain. Will continue to monitor.
[2018-09-19 05:00] VITALS: BP 104/59
--- NOTE | 2018-09-19 07:16 | NUR ---
Endorsed care to day shift RN. Patient remains non compliant and does not want IV placed. Patient also verbalized "I do not want to be moved or turned".
--- NOTE | 2018-09-19 07:20 | NUR ---
Opening Shift Note Assumed care of patient, awake and alert. No S/S of distress/SOB or pain. Instructed on POC and to call for assist PRN, will continue to monitor for changes Q1hr and PRN.
[2018-09-19 07:21] LABS: INR 1.8 (0.9-1.15); Prothrombin Time 18.6 sec (9.27-12.13)
[2018-09-19] MEDS: ALBUTEROL SULF 2.5 MG/0.5ML(0.5%) NEB SOLN NEB SCH ×4 (07:28→18:58)
[2018-09-19 09:00] VITALS: BP 104/58
[2018-09-19] MEDS: FUROSEMIDE 40 MG/4 ML VIAL IV SCH (09:30)
[2018-09-19] MEDS: methylPREDNISolone SOD SUCC 40 MG/ML VL IV SCH ×2 (09:31→22:25)
[2018-09-19] MEDS: DIGOXIN 0.125 MG TAB PO SCH (09:31)
[2018-09-19] MEDS: POTASSIUM CHLORIDE 8 MEQ TAB PO SCH (09:31)
[2018-09-19] MEDS: AMIODARONE HCL 200 MG TAB PO SCH (09:31)
[2018-09-19] MEDS: ACETAMINOPHEN 500 MG TAB PO PRN ×3 (09:55→22:26)
[2018-09-19] MEDS: FINASTERIDE 5 MG TAB PO SCH (10:00)
[2018-09-19 13:00] VITALS: BP 96/57
[2018-09-19 17:00] VITALS: BP 99/45
[2018-09-19] MEDS ORDERED: WARFARIN SODIUM 1 MG TAB PO ONE (17:00)
--- NOTE | 2018-09-19 19:00 | NUR ---
Opening Shift Note Assumed care of patient, awake and alert. No S/S of distress/SOB or pain. Instructed on POC and to call for assist PRN, will continue to monitor for changes Q1hr and PRN. Side rails up x2. Bed locked in lowest position. Call light within reach.
[2018-09-19 19:01] VITALS: BP 99/45
--- NOTE | 2018-09-19 19:16 | NUR ---
Change of shift given to offset lithographic press operator RN. No distress noted.
[2018-09-19 22:00] VITALS: BP 101/49
--- NOTE | 2018-09-20 01:36 | NUR ---
Rounds Patient in bed asleep with no signs of distress/sob/pain. Will continue to monitor.
[2018-09-20] MEDS: IPRATROPIUM BROM 0.5 MG/2.5ML INH SOL NEB SCH ×6 (02:42→22:00)
[2018-09-20 05:28] VITALS: BP 115/61
[2018-09-20 05:33] LABS: Basophils # (auto) 0 uL; Eosinophils # (auto) 0 uL; Hemoglobin 8.3 g/dL (13.5-17.5); Lymphocytes # (auto) 0.1 uL; Monocytes # (auto) 0.2 uL; Monocytes % (auto) 1.7 % (0.0-12.0); Nucleated Red Blood Cells % 0.1 %
[2018-09-20 05:37] LABS: Basophils % (auto) 0.1 % (0.0-2.0); Hematocrit 25.4 % (41.0-53.0); Mean Corpuscular Hgb Conc. 32.5 g/dL (32.0-36.0); Mean Corpuscular Volume 76.9 fL (80.0-100.0); Neutrophils # (auto) 10.2 uL; Neutrophils % (auto) 97.2 % (37.0-80.0); Platelet Count (auto) 516 10^3/uL (140-450); White Blood Cell 10.5 10^3/uL (4.4-10.8)
[2018-09-20 05:45] LABS: INR 1.75 (0.9-1.15); Prothrombin Time 18.1 sec (9.27-12.13); Red Cell Distribution Width 20.7 % (11.8-14.3)
[2018-09-20 06:12] LABS: Albumin 1.9 g/dL (3.4-5.0); Bilirubin, Total 0.4 mg/dL (0.2-1.0); Calcium 8.1 mg/dL (8.5-10.1); Magnesium 2.3 mg/dL (1.6-2.6); Potassium 4.3 mmol/L (3.5-5.1); Total Protein 6.2 g/dL (6.4-8.2)
[2018-09-20] MEDS: ALBUTEROL SULF 2.5 MG/0.5ML(0.5%) NEB SOLN NEB SCH ×4 (06:20→18:25)
--- NOTE | 2018-09-20 07:02 | NUR ---
Endorsed care to day shift RN. Patient in bed asleep with no signs of distress. Bed alarm on for safety.
[2018-09-20] MEDS: ACETAMINOPHEN 500 MG TAB PO PRN ×2 (09:01→21:12)
[2018-09-20] MEDS: DIGOXIN 0.125 MG TAB PO SCH (09:02)
[2018-09-20] MEDS: POTASSIUM CHLORIDE 8 MEQ TAB PO SCH (09:02)
[2018-09-20] MEDS: AMIODARONE HCL 200 MG TAB PO SCH (09:02)
[2018-09-20] MEDS: methylPREDNISolone SOD SUCC 40 MG/ML VL IV SCH ×2 (09:02→21:12)
[2018-09-20] MEDS: FUROSEMIDE 40 MG/4 ML VIAL IV SCH (09:03)
[2018-09-20 09:06] VITALS: BP 106/53
[2018-09-20] MEDS: FINASTERIDE 5 MG TAB PO SCH (10:00)
[2018-09-20 13:00] VITALS: BP 96/48
--- NOTE | 2018-09-20 15:48 | NUR ---
Confirmed orders with Dr. Resendiz. Patient is receiving procedure on Friday. Hold warfarin today and tomorrow. No orders for d/c TLC.
[2018-09-20] MEDS ORDERED: WARFARIN SODIUM 1 MG TAB PO ONE (17:00)
--- NOTE | 2018-09-20 19:00 | NUR ---
Opening Shift Note Assumed care of patient, awake and alert. No S/S of distress/SOB or pain. Instructed on POC and to call for assist PRN, will continue to monitor for changes Q1hr and PRN. Side rails up x2. Bed locked in lowest position. Call light within reach. Bed alarm on for safety.
--- NOTE | 2018-09-20 19:29 | NUR ---
Change of shift given to fresh work wrapper layer RN. No distress noted.
[2018-09-20 22:00] VITALS: BP 108/46
[2018-09-21] MEDS: IPRATROPIUM BROM 0.5 MG/2.5ML INH SOL NEB SCH ×6 (02:00→21:55)
[2018-09-21 05:08] VITALS: BP 116/69
[2018-09-21] MEDS: ALBUTEROL SULF 2.5 MG/0.5ML(0.5%) NEB SOLN NEB SCH ×4 (06:15→19:03)
[2018-09-21 06:45] LABS: INR 1.7 (0.9-1.15); Prothrombin Time 17.7 sec (9.27-12.13)
[2018-09-21 09:00] VITALS: BP 93/59
[2018-09-21] MEDS: FINASTERIDE 5 MG TAB PO SCH (10:00)
--- NOTE | 2018-09-21 10:22 | NUR ---
WOUND CARE NOTE: IN TO SEE PATIENT AT THIS TIME FOR SKIN INTEGRITY. PATIENT REMAINS IN HOSPITAL, ROOM 237A. HE CONTINUES TO BE WOUND FREE, BUT IS VERY CACHECTIC IN APPEARANCE, WEIGHING ONLY 61.0 KG. VERY PROMINENT BONY PROMINENCES. ORDERED SPECIALTY AIR MATTRESS AT THIS TIME. PATIENT TO BE PLACED, PENDING DELIVERY BY JOSHUA VALDEZ. RECOMMEND: SPECIALTY AIR MATTRESS, CONTINUATION WITH ALL WOUND CARE ORDERS PREVIOUSLY PRESCRIBED BY MD. WOUND CARE TEAM WILL CONTINUE TO MONITOR.
[2018-09-21] MEDS: POTASSIUM CHLORIDE 8 MEQ TAB PO SCH ×2 (10:46→15:51)
[2018-09-21] MEDS: methylPREDNISolone SOD SUCC 40 MG/ML VL IV SCH ×2 (10:46→22:27)
[2018-09-21] MEDS: DIGOXIN 0.125 MG TAB PO SCH (10:49)
[2018-09-21] MEDS: AMIODARONE HCL 200 MG TAB PO SCH (10:49)
--- NOTE | 2018-09-21 11:30 | NUR ---
Spoke with Dr. Arnold per MD hold Coumadin until procedure.
--- NOTE | 2018-09-21 11:43 | NUR ---
Nutrition Follow-up Notes Wt.: 61.0 kg Pt was sleeping with no family by bedside. per pt records pt will have cardiac cath tomorrow. pt with no distress noted. pt is currently on cardiac diet with adequate PO 75% x4 per RN doc Est. Needs based on IBW (81 kg): 2050 kcal to 2350 kcal (25-30 kcal/kgIBW), 81 gms to 105 gms pro (1.0-1.3 gms/kgIBW d/t severe hypoalbuminemia). Will continue to monitor pertinent labs and reassess nutrient need prn Labs: BUN 34 H, GLU 128 H, CA 8.1 L, ALB 1.9 L. Skin: Reece scale 12, high risk, skin intact per drying and winding supervisor. GI: Pt had 1 BM on 09/19 per drying and winding supervisor. PES: Altered nutrition related lab values r/t current/chronic medical condition aeb hyperglycemia, elev. BUN, low Cr,hypocalcemia and severe hypoalbuminemia Increased nutrient needs r/t chronic current medical condition aeb 71% IBW, BMI 17.2 kg/m2, cachectic, hx of significant wt loss, severe hypoalbuminemia. Will continue to monitor PO intake, skin status, pertinent labs and weight trend. F/u in 3-5 days. Rec.: 1.) Consider Ensure Enlive 1 carton QID. 2.) If Albumin level continues trending down, consider Prostat 1 pkt BID. 3.) Continue close supervision and feeding assistance prn during meals. 4.) Refer to RD for further nutrition educ. and weight monitoring upon discharge. 5.) Continue current plan of care.
[2018-09-21 13:22] VITALS: BP 96/47
[2018-09-21] MEDS: FUROSEMIDE 40 MG/4 ML VIAL IV SCH (15:47)
[2018-09-21 17:00] VITALS: BP 97/53
--- NOTE | 2018-09-21 19:19 | NUR ---
Change of shift given to third shift lieutenant RN. No distress noted.
--- NOTE | 2018-09-21 19:30 | NUR ---
RECEIVED PT FROM DAY RN POC REVIEWED
[2018-09-21 21:00] VITALS: BP 105/51
--- NOTE | 2018-09-21 22:15 | NUR ---
resting with eyes closed resp even and unlabored, call light within reach, denies pain or discomfort, repositioned with hob up
[2018-09-22] MEDS: IPRATROPIUM BROM 0.5 MG/2.5ML INH SOL NEB SCH ×5 (02:10→18:14)
[2018-09-22] MEDS: ALBUTEROL SULF 2.5 MG/0.5ML(0.5%) NEB SOLN NEB SCH ×4 (02:10→18:14)
[2018-09-22 04:17] LABS: Basophils # (auto) 0 uL; Eosinophils # (auto) 0 uL; Hemoglobin 8.4 g/dL (13.5-17.5); Lymphocytes # (auto) 0.1 uL; Nucleated Red Blood Cells % 0.1 %; White Blood Cell 15.5 10^3/uL (4.4-10.8)
[2018-09-22 04:21] LABS: Hematocrit 26.5 % (41.0-53.0); Lymphocytes % (auto) 0.7 % (10.0-50.0); Mean Corpuscular Hemoglobin 24.4 pg (28.0-32.0); Mean Corpuscular Hgb Conc. 31.7 g/dL (32.0-36.0); Mean Corpuscular Volume 77.1 fL (80.0-100.0); Monocytes # (auto) 0.4 uL; Monocytes % (auto) 2.7 % (0.0-12.0); Neutrophils % (auto) 96.6 % (37.0-80.0); Platelet Count (auto) 542 10^3/uL (140-450); Red Blood Cells 3.43 10^6/uL (4.5-5.90)
[2018-09-22 04:30] LABS: INR 1.39 (0.9-1.15); Prothrombin Time 14.6 sec (9.27-12.13)
[2018-09-22 04:34] LABS: Red Cell Distribution Width 21.2 % (11.8-14.3)
[2018-09-22 05:00] VITALS: BP 101/49
[2018-09-22] MEDS: HYDROcodone-ACET 5/325MG TAB PO PRN ×2 (05:40→15:40)
--- NOTE | 2018-09-22 06:52 | NUR ---
REPORT GIVEN TO AM NURSE POC REVIEWED
[2018-09-22 09:00] VITALS: BP 95/46
--- NOTE | 2018-09-22 09:03 | NUR ---
CALLED TO CONFIRM THAT THE PATIENT IS HAVING A LEFT HEART CATH FOR TOMORROW, 09/23/18
[2018-09-22] MEDS: FUROSEMIDE 40 MG/4 ML VIAL IV SCH (10:10)
[2018-09-22] MEDS: methylPREDNISolone SOD SUCC 40 MG/ML VL IV SCH (10:11)
[2018-09-22] MEDS: AMIODARONE HCL 200 MG TAB PO SCH (10:11)
[2018-09-22] MEDS: POTASSIUM CHLORIDE 8 MEQ TAB PO SCH (10:11)
[2018-09-22] MEDS: FINASTERIDE 5 MG TAB PO SCH (10:12)
[2018-09-22] MEDS: DIGOXIN 0.125 MG TAB PO SCH (10:12)
--- NOTE | 2018-09-22 10:47 | NUR ---
TRANSFER: PT TO GO TO [facility] TODAY AT SOMETIME, [facility] WILL ARRANGE TRANSPORT AND FACILITY. PRIMARY RN DAISY INFORMED TO INFORM PT OF TRANSFER AND TO HAVE CHART AND CDS COPIED TO GO WITH PT
--- NOTE | 2018-09-22 11:00 | NUR ---
CLAUDIO from [facility] called for report on patient.
--- NOTE | 2018-09-22 12:57 | NUR ---
Spoke with Lv from [facility]. The patient will be transferred on ACLS to telemetry, room 247, at [facility]. Dr. Julio C Isbell will be the accepting physician. Estimated time of draft roller picker will be 1929. Will call for report at 1830. Phone number for report [phone].
[2018-09-22 13:00] VITALS: BP 107/54
--- NOTE | 2018-09-22 13:07 | NUR ---
Paged Dr. Arnold to sign transfer paperwork
--- NOTE | 2018-09-22 18:50 | NUR ---
CALLED [facility]. GAVE REPORT TO SHANTHI. FAIZA
--- NOTE | 2018-09-22 20:10 | NUR ---
[facility] arrived for patient transport to [facility]. IV removed from right wrist due to patient complaining of pain. IV remains to right forearm saline locked. [facility] remaining with patient as well. Tele box returned to [facility]. Report given to [facility]. Vitals stable. No distress noted. Discharge paperwork sent with [facility]
== END 2018-09-22 20:10 | disposition short-term general hospital (02) | DRG 291 ==
LOC: EDBD 14:39 → ER 14:41 → TELE 22:30 → TELE-EAST 09-17 13:07
PROVIDERS: ADMIT Nurse Practitioner Family; ATTEND Internal Medicine
DX: I11.0 Hypertensive heart disease with heart failure (principal); J18.1 Lobar pneumonia, unspecified organism; J44.1 Chronic obstructive pulmonary disease with (acute) exacerbation; J44.0 Chronic obstructive pulmonary disease with (acute) lower respiratory infection; I50.33 Acute on chronic diastolic (congestive) heart failure; D63.8 Anemia in other chronic diseases classified elsewhere; I48.91 Unspecified atrial fibrillation; E78.5 Hyperlipidemia, unspecified; I70.0 Atherosclerosis of aorta; Z79.01 Long term (current) use of anticoagulants; Z86.73 Personal history of transient ischemic attack (TIA), and cerebral infarction without residual deficits; Z79.899 Other long term (current) drug therapy
CPT/HCPCS: 36415; 71045; 80048; 80053; 80162; 81001; 83605; 83735; 83880; 84443; 84484; 85007; 85025; 85027; 85610; 85730; 87040; 87081; 93005; 93306; 94640; 94761; 96361; 96365; 96367; 96375; G0378; J0696; J1956; J7060

== ENCOUNTER 2019-05-21 07:35 | Emergency (ER) | payer OTHER ==
[~2019-05-21] VITALS: Ht 177.8 cm; Wt 68.0 kg
[~2019-05-21 07:35] MED LIST changes: -AZIT500T4 PO; +AZIT500T66 PO; -LACT10SO32 PO; -LISI10TA6 PO
[2019-05-21 08:57] LABS: Red Cell Distribution Width 19.9 % (11.8-14.3)
[2019-05-21 08:59] LABS: Hematocrit 35.8 % (41.0-53.0); Mean Corpuscular Hemoglobin 26.5 pg (28.0-32.0); Mean Corpuscular Hgb Conc. 30.9 g/dL (32.0-36.0); Mean Corpuscular Volume 85.8 fL (80.0-100.0); Platelet Count (auto) 436 10^3/uL (140-450); Red Blood Cells 4.17 10^6/uL (4.5-5.90); White Blood Cell 14.3 10^3/uL (4.4-10.8)
[2019-05-21] MEDS ORDERED: PIPERACILLIN-TAZOB 3.375GM 100 ML IV ONE (09:00)
[2019-05-21 09:04] LABS: Band Neutrophils % (manual) 0; Basophils % (manual) 0 (0.0-2.0); Blast Cells 0; Eosinophils % (manual) 0 (0-7); Metamyelocytes % 0; Monocytes % (manual) 0 (0-12); Myelocytes % 0; Promyelocytes % 0; Reactive Lymphocytes 0
[2019-05-21 09:22] LABS: Albumin 2.2 g/dL (3.4-5.0); BUN/Creatinine Ratio 27.4; Calcium 8.6 mg/dL (8.5-10.1); Potassium 4.1 mmol/L (3.5-5.1)
[2019-05-21 09:26] LABS: Bilirubin, Total 0.2 mg/dL (0.2-1.0); Total Protein 6.7 g/dL (6.4-8.2)
[2019-05-21 09:46] LABS: Lymphocytes % (manual) 2 (10.0-50.0)
[2019-05-21 10:06] LABS: Lactic Acid w/Reflex 3.1 mmol/L (0.4-2.0)
[2019-05-21] MEDS ORDERED: SODIUM CHLORIDE 0.9% 1,000 ML IV ONE ×2 (10:30)
[2019-05-21] MEDS ORDERED: methylPREDNISolone SOD SUCC 125 MG/2 ML VL IV ONE (11:15)
[2019-05-21] MEDS ORDERED: ONDANSETRON HCL 4 MG/2 ML VIAL IV ONE (12:30)
[2019-05-21] MEDS ORDERED: MORPHINE SULF INJ 2 MG/ML SYRINGE 1ML IV ONE (12:30)
[2019-05-21 15:30] VITALS: BP 95/52
== END 2019-05-21 15:51 | disposition short-term general hospital (02) ==
LOC: EDUNIT# 07:35 → EDBD 07:35 → ER 07:37
DX: A41.9 Sepsis, unspecified organism (principal); J44.1 Chronic obstructive pulmonary disease with (acute) exacerbation; I48.20 Chronic atrial fibrillation, unspecified; E43 Unspecified severe protein-calorie malnutrition; I11.0 Hypertensive heart disease with heart failure; I50.9 Heart failure, unspecified; E78.5 Hyperlipidemia, unspecified; Z86.73 Personal history of transient ischemic attack (TIA), and cerebral infarction without residual deficits
CPT/HCPCS: 36415; 71045; 71250; 80053; 83605; 84484; 85007; 85027; 87040; 93005; 96365; 96366; 96375; 99291; J2270; J2405; J2543; J2930; J7030

== ENCOUNTER 2019-06-17 06:36 | Emergency (ER) | payer OTHER ==
[~2019-06-17] VITALS: Ht 180.3 cm; Wt 61.2 kg
[2019-06-17] MEDS ORDERED: ONDANSETRON HCL 4 MG/2 ML VIAL IV ONE (07:00)
[2019-06-17] MEDS ORDERED: SODIUM CHLORIDE 0.9% 1,000 ML IV ONE (08:07)
[2019-06-17] MEDS ORDERED: FAMOTIDINE (10MG/ML) 2ML VL IV ONE (08:15)
[2019-06-17 09:16] LABS: Urine Bacteria MANY /hpf (None Seen); Urine Blood 2+ /uL (Negative); Urine Mucus MODERATE (None Seen); Urine WBC 8063 /hpf (0 - 3); Urine WBC Clumps PRESENT /hpf (None Seen)
[2019-06-17 09:56] LABS: Hemoglobin 9.7 g/dL (13.5-17.5)
[2019-06-17 09:58] LABS: Hematocrit 30.6 % (41.0-53.0); Mean Corpuscular Hgb Conc. 31.6 g/dL (32.0-36.0); Mean Corpuscular Volume 82.3 fL (80.0-100.0); Platelet Count (auto) 525 10^3/uL (140-450); Red Blood Cells 3.72 10^6/uL (4.5-5.90); White Blood Cell 16.7 10^3/uL (4.4-10.8)
[2019-06-17] MEDS ORDERED: cefTRIAXone 1GM/50ML D5W 50 ML IV ONE (10:00)
[2019-06-17 10:04] LABS: Red Cell Distribution Width 20.6 % (11.8-14.3)
[2019-06-17 10:05] LABS: Basophils % (manual) 0 (0.0-2.0); Blast Cells 0; Eosinophils % (manual) 0 (0-7); Metamyelocytes % 0; Myelocytes % 0; Promyelocytes % 0; Reactive Lymphocytes 0
[2019-06-17 10:14] LABS: Amylase 54 U/L (25-115); Lipase 38 U/L (73-393)
[2019-06-17] MEDS ORDERED: HYDROcodone-ACET 10/325MG TAB PO ONE (10:15)
[2019-06-17 10:27] LABS: Albumin 2.2 g/dL (3.4-5.0); BUN/Creatinine Ratio 52.6; Potassium 4.6 mmol/L (3.5-5.1)
[2019-06-17 10:30] LABS: Bilirubin, Total 0.4 mg/dL (0.2-1.0); Total Protein 6.8 g/dL (6.4-8.2)
[2019-06-17] MEDS ORDERED: CEFTRIAXONE SODIUM 2 GM in D5W 5% 50 ML IV ONE (10:45)
[2019-06-17 11:01] LABS: INR 1.87 (0.9-1.15); Partial Thromboplastin Time 39.2 sec (23.64-32.05)
[2019-06-17 11:53] LABS: Hematocrit 28.5 % (41.0-53.0)
[2019-06-17 11:57] LABS: Band Neutrophils % (manual) 2; Lymphocytes % (manual) 1 (10.0-50.0); Monocytes % (manual) 7 (0-12)
[2019-06-17] MEDS ORDERED: PANTOPRAZOLE 40 MG/10 ML VIAL INJ IV ONE (12:45)
[2019-06-17 13:58] VITALS: BP 11/25
== END 2019-06-17 14:00 | disposition short-term general hospital (02) ==
LOC: ER 06:36 → EDBD 06:36 → ER 14:00
DX: A41.9 Sepsis, unspecified organism (principal); K92.0 Hematemesis; N39.0 Urinary tract infection, site not specified; E43 Unspecified severe protein-calorie malnutrition; Z68.1 Body mass index [BMI] 19.9 or less, adult
CPT/HCPCS: 36415; 74176; 80053; 81001; 82150; 83605; 83690; 84484; 85007; 85014; 85018; 85027; 85610; 85730; 87040; 87086; 93005; 96365; 96366; 96375; 99285; C9113; J0696; J2405; J3490; J7030; J7060